=== PATIENT | female | born 2000 | race Caucasian/White ===

== ENCOUNTER 2020-03-03 20:11 | Observation (INO) | payer BC, SELFPAY ==
--- NOTE | ~2020-03-03 | CT_ITS ---
EXAMINATION: CT abdomen pelvis w con INDICATION: Right lower quadrant pain TECHNIQUE: Computed tomographic images of the abdomen and pelvis were obtained after the administrati on of 100 cc of Omnipaque 350 intravenous contrast. The dose-length product (DLP) was 254.45 mGy-cm. Automated exposure control and iterative reconstruction technique were employed. COMPARISON: 03/28/2013 FINDINGS: The lung bases are clear. The heart size is normal. The liver, spleen, pancreas, gallbladde r, and adrenal glands are normal. The kidneys are unremarkable. No pathologically enlarged abdominal or pelvic lymph nodes are identified. There is no free intraperitoneal gas or evidence of bowel obstr uction. There is an appendicolith at the base of the appendix. The dilated appendix measures up to 7 mm. There is no evidence of periappendiceal abscess or perforation. The visualized osseous structures are unremarkable. IMPRESSION: 1. Acute appendicitis. Reviewed, dictated and finalized at location B. IMPRESSION: 1. Acute appendicitis.
[2020-03-03 20:20] VITALS: BP 126/80; PULSE 103; RESP 17; TEMP 36.9; O2SAT 100
[2020-03-03 20:40] LABS: Basophils Percent Auto 0.2 % (0.2-1.2); Eosinophils Absolute Auto 0.1 K/mm3 (0-0.3); Eosinophils Percent Auto 1.7 % (0-4.4); Hematocrit 42.8 % (37.0-47.0); Hemoglobin 14.7 g/dL (12.0-15.0); Immature Granulocyte Absolute 0.02 K/mm3 (0.00-0.031); Immature Granulocyte Percent A 0.2 % (0-0.5); Lymphocytes Absolute Auto 1.84 K/mm3 (0.9-3.2); Lymphocytes Percent Auto 22.3 % (18.3-44.2); Mean Corpuscular HGB Conc 34.3 g/dl (32-36); Mean Corpuscular Hemoglobin 29.6 pg (26-34); Mean Corpuscular Volume 86.1 fl (80-100); Mean Platelet Volume 9.9 fl (7.4-10.4); Monocytes Absolute Auto 0.6 K/mm3 (0.1-0.6); Monocytes Percent Auto 7.6 % (2.6-8.5); Neutrophils Absolute Auto 5.6 K/mm3 (1.3-6.7); Platelet Count Result 266 k/mm3 (150-375); Red Blood Count 4.97 M/mm3 (4.2-5.4); Red Cell Distribution Width 12.7 % (11.5-14.5); White Blood Count 8.3 K/mm3 (4.5-10.0)
[2020-03-03 20:52] LABS: Alanine Aminotransferase 24 U/L (4-35); Albumin Level 4.4 g/dL (3.5-5.1); Alkaline Phosphatase 43 U/L (38-126); Aspartate Amino Transferase 24 U/L (14-36); Bilirubin,Total 0.5 mg/dL (0.2-1.3); Blood Urea Nitrogen 12 mg/dL (7-17); Calcium 9.3 mg/dL (8.4-10.2); Carbon Dioxide 25 mmol/L (22-30); Chloride 102 mmol/L (98-107); Estimated CRCL calculation 83 ml/min; Estimated Glomerular Filt Rate > 60; Glucose 104 mg/dL (65-105); Lipase 50 U/L (23-300); Sodium 135 mmol/L (137-145)
[2020-03-03 21:53] LABS: Add Urine Microscopic? NO; Appearance Urine Clear (Clear); Bilirubin Urine Negative (Negative); Blood Urine Negative (Negative); Color Urine Colorless (Yellow); Glucose Urine UA Negative (Negative); Ketones Urine Negative (Negative); Leukocyte Esterase Ur Negative LEU/UL (Negative); Nitrate Urine Negative (Negative); Protein Urine Negative (Negative); Specific Grav Ur 1.006 (1.001-1.035); Urobilinogen Urine Negative mg/dL (<2.0)
--- NOTE | 2020-03-03 22:32 | ED.ABDPAIN ---
HPI - Abdominal Pain General Chief Complaint: Abdominal Pain <Lowell Weston MD - Last Filed: 03/04/20 00:29> Stated Complaint: RLQ pain, nausea <Lowell Weston MD - Last Filed: 03/04/20 00:29> Time Seen by Provider: 03/03/20 22:32 <Lowell Weston MD - Last Filed: 03/04/20 00:29> History of Present Illness HPI narrative: Abdominal pain since this morning. Start near the umbilicus. Migrated to the RLQ. Moderate intensity. Worse with any movement. Associated with nausea. <Lowell Weston MD - Last Filed: 03/04/20 00:29> Related Data Home Medications: Home Medications Medication Instructions Recorded Confirmed norethindrone acetate 1 mg-ethinyl 1 tablet PO DAILY 08/31/19 estradiol 20 mcg tablet <Lowell Weston MD - Last Filed: 03/04/20 00:29> Allergies/Adverse Reactions: Allergies Allergy/AdvReac Type Severity Reaction Status Date / Time No Known Allergies Allergy Unknown Verified 03/03/20 23:10 <Lowell Weston MD - Last Filed: 03/04/20 00:29> Review of Systems Review of Systems: All systems reviewed & are unremarkable except as noted in HPI and below <Lowell Weston MD - Last Filed: 03/04/20 00:29> Constitutional: Constitutional: Denies fever(s) <Lowell Weston MD - Last Filed: 03/04/20 00:29> Gastrointestinal: Gastrointestinal: Denies diarrhea, Reports nausea and Denies vomiting <Lowell Weston MD - Last Filed: 03/04/20 00:29> Genitourinary: Genitourinary: Denies hematuria, Denies nocturia and Denies dysuria <Lowell Weston MD - Last Filed: 03/04/20 00:29> Neurologic: Denies dizziness and Denies numbness <Lowell Weston MD - Last Filed: 03/04/20 00:29> [facility] Social History Social History: Social History (Updated 08/31/19 @ 13:42 by Rolanda Caal) Smoking status: Never smoker Alcohol intake: current Substance use: never Substance use type: does not use Gender identity (if verbalized by the patient): Female <Lowell Weston MD - Last Filed: 03/04/20 00:29> Exam Const: General: healthy appearing, no acute distress and alert <Lowell Weston MD - Last Filed: 03/04/20 00:29> Orientation/consciousness: patient oriented x3 <Lowell Weston MD - Last Filed: 03/04/20 00:29> HENMT: Head: normal to inspection <Lowell Weston MD - Last Filed: 03/04/20 00:29> Neck: Neck: normal visual inspection and no lymphadenopathy <Lowell Weston MD - Last Filed: 03/04/20 00:29> Chest: Chest palpation & inspection: no tenderness <Lowell Weston MD - Last Filed: 03/04/20 00:29> Resp: Effort & Inspection: normal respiratory effort <Lowell Weston MD - Last Filed: 03/04/20 00:29> Auscultation: clear to auscultation bilaterally, no rales, no rhonchi and no wheezes <Lowell Weston MD - Last Filed: 03/04/20 00:29> Cardio: Jugular venous distension: no JVD <Lowell Weston MD - Last Filed: 03/04/20 00:29> Rate: regular rate <Lowell Weston MD - Last Filed: 03/04/20 00:29> Rhythm: regular rhythm <Lowell Weston MD - Last Filed: 03/04/20 00:29> Heart sounds: no murmurs <Lowell Weston MD - Last Filed: 03/04/20 00:29> GI: Inspection: non-distended <Lowell Weston MD - Last Filed: 03/04/20 00:29> GI Palp: Yes Soft to palpation, Yes Tenderness to palpation present (GI) (RLQ), No Guarding due to palpation present (GI) and No Rebound tenderness present <Lowell Weston MD - Last Filed: 03/04/20 00:29> Skin: General skin exam: normal color <Lowell Weston MD - Last Filed: 03/04/20 00:29> Neuro: General: patient oriented x3 and moves all extremities <Lowell Weston MD - Last Filed: 03/04/20 00:29> Speech: normal speech <Lowell Weston MD - Last Filed: 03/04/20 00:29> Extrem: General: no edema <Lowell Weston MD - Last Filed: 03/04/20 00:29> Psych: Appearance: well kempt <Lowell Weston MD - Last Filed: 0
[2020-03-03 23:12] VITALS: BP 121/80; PULSE 89; RESP 20; O2SAT 99
[2020-03-03 23:46] VITALS: BP 111/69; PULSE 79; RESP 16; O2SAT 100
[2020-03-04] VITALS (13 sets, daily range): BP systolic 100–140; BP diastolic 48–79; PULSE 67–96; RESP 14–24; TEMP 36.2–37; O2SAT 95–100; BMI 22.4
--- NOTE | 2020-03-04 00:24 | PC.NURSE ---
went to start carie on pt. pt mother states before we do anything, i want to speak to the doctor.. i want her to be transferred to [facility] because thats where all our doctors are. notified.
--- NOTE | 2020-03-04 01:11 | PC.NURSE ---
pt states she now wants to stay and be admitted here. md notified. states shes going to go talk w/ pt.
[2020-03-04] MEDS: MORPHINE SULFATE 2 MG/ML INJ IV PUSH (01:31)
[2020-03-04] MEDS: ONDANSETRON INJ 4 MG/2 ML VIAL IV PUSH ×2 (01:31→08:41)
--- NOTE | 2020-03-04 03:06 | ADMGEN ---
This patient, Monica Shafer, was admitted to [facility] Room 302-01. Patient/family oriented to hospital policies and general routines including ID bracelet, bed and alarms, visiting hours, pain management, procedures, bathroom and other care routines, personal items, smoking policy, room service/diet, and visiting hours. Valuables list has been completed. Information on how to activate the Rapid Response Team has been discussed. Patient/Family are encouraged to report perceived risks to care and to ask questions if they do not understand what they are told or what they should do.
[2020-03-04] MEDS: MORPHINE SULFATE 4 MG/ML INJ 2 MG IV PUSH (06:53)
--- NOTE | 2020-03-04 07:10 | WPDANESEPPF ---
Anes - Initial Pre Proc Eval Procedure: Operation Date: 03/04/20 07:00 Proposed Procedures p Laparoscopic Appendectomy - Maude Boyle MD Date/Time: 03/04/20 07:10 Surgeon: Maude Boyle MD Pre Op Diagnosis: Acute appendicitis Patient Data Age: 20 Gender: F Height: 1.63 m Weight: 59.4 kg Last Vital Signs Temp 36.6 C 03/04/20 06:00 Pulse 70 03/04/20 06:00 Resp 20 03/04/20 06:00 BP 140/54 L 03/04/20 06:00 Pulse Ox 98 03/04/20 06:00 Allergies Allergy/AdvReac Type Severity Reaction Status Date / Time No Known Allergies Allergy Unknown Verified 03/03/20 23:10 Home Medications Medication Instructions Recorded Confirmed Type norethindrone acetate 1 mg-ethinyl 1 tablet PO DAILY 08/31/19 03/04/20 History estradiol 20 mcg tablet Laboratory Tests 03/03/20 03/03/20 03/03/20 20:27 20:27 21:36 WBC 8.3 K/mm3 K/mm3 (4.5-10.0) RBC 4.97 M/mm3 M/mm3 (4.2-5.4) Hgb 14.7 g/dL g/dL (12.0-15.0) Hct 42.8 % % (37.0-47.0) MCV 86.1 fl fl (80-100) MCH 29.6 pg pg (26-34) MCHC 34.3 g/dl g/dl (32-36) RDW 12.7 % % (11.5-14.5) Plt Count 266 k/mm3 k/mm3 (150-375) MPV 9.9 fl fl (7.4-10.4) Immature Gran % (Auto) 0.2 % % (0-0.5) Neut % (Auto) 68.0 % % (45.5-73.1) Lymph % (Auto) 22.3 % % (18.3-44.2) [place] % (Auto) 7.6 % % (2.6-8.5) Eos % (Auto) 1.7 % % (0-4.4) Baso % (Auto) 0.2 % % (0.2-1.2) Lymph # (Auto) 1.84 K/mm3 K/mm3 (0.9-3.2) [place] # (Auto) 0.6 K/mm3 K/mm3 (0.1-0.6) Eos # (Auto) 0.1 K/mm3 K/mm3 (0-0.3) Baso # (Auto) 0.0 K/mm3 K/mm3 (0.0-0.1) Abs Immat Gran (auto) 0.02 K/mm3 K/mm3 (0.00-0.031) Absolute Neuts (auto) 5.6 K/mm3 K/mm3 (1.3-6.7) Absolute Nucleated RBC 0.0 K/mm3 K/mm3 (0.0-0.012) Nucleated RBC % 0.0 % % (0.0-0.2) Sodium 135 mmol/L L mmol/L (137-145) Potassium 4.0 mmol/L mmol/L (3.4-5.0) Chloride 102 mmol/L mmol/L (98-107) Carbon Dioxide 25 mmol/L mmol/L (22-30) Anion Gap 12.0 mmol/L mmol/L (7-16) BUN 12 mg/dL mg/dL (7-17) Creatinine 0.80 mg/dL mg/dL (0.7-1.0) Estim Creat Clear Calc 83 ml/min ml/min Estimated GFR > 60 (59 - ) Glucose 104 mg/dL mg/dL (65-105) Calcium 9.3 mg/dL mg/dL (8.4-10.2) Total Bilirubin 0.5 mg/dL mg/dL (0.2-1.3) AST 24 U/L U/L (14-36) ALT 24 U/L U/L (4-35) Alkaline Phosphatase 43 U/L U/L (38-126) Total Protein 8.0 g/dL g/dL (6.3-8.2) Albumin 4.4 g/dL g/dL (3.5-5.1) Lipase 50 U/L U/L (23-300) Urine Color Colorless (Yellow) Urine Appearance Clear (Clear) Urine pH 6.0 (5.0-9.0) Ur Specific [place] 1.006 (1.001-1.035) Urine Protein Negative mg/dL mg/dL (Negative) Urine Glucose (UA) Negative mg/dL mg/dL (Negative) Urine Ketones Negative mg/dL mg/dL (Negative) Ur Blood (Man) Negative (Negative) Urine Nitrate Negative (Negative) Urine Bilirubin Negative (Negative) Urine Urobilinogen Negative mg/dL mg/dL (<2.0) Leukocyte Esterase Rfl Negative BELL/UL BELL/UL (Negative) Patient hx anesthesia problems: none Family hx anesthesia problems: none PMFSH Past Medical History Medical History (Updated 03/04/20 @ 07:10 by Mark Elizabeth DO) Anxiety Social History Social History (Updated 08/31/19 @ 13:42 by Rolanda Caal) Smoking status: Never smoker Alcohol intake: current Drinks per week: 1 Substance use: never Substance use type: does not use Gender identity (if verbalized by the patient): Female Spiritual care c
[2020-03-04] MEDS: LACTATED RINGERS 1,000 ML 30 ML IV CONT (07:17)
--- NOTE | 2020-03-04 07:31 | PM.IMHP ---
H&P: HPI History of Present Illness Chief complaint: Acute appendicitis Narrative: Monica Shafer is a 20 year old female presenting to ED c/o 1 d h/o lower abd pain. Pt reports pain started more mild and periumbilical. Pt reports pain is now localized to RLQ and constant. Pt reports assoc decreased appetite and nausea. Pt denies previous episodes. Review of Systems Constitutional: Constitutional: Denies chills, Denies fatigue, Denies lethargy and Denies weakness Eyes: Eyes: Reports no additional eye complaints ENT: Reports Normal hearing present Cardiovascular: Cardiovascular: Denies chest pain Respiratory: Respiratory: Denies dyspnea Gastrointestinal: Gastrointestinal: Reports abdominal pain, Denies bloating, Denies constipation, Denies diarrhea, Reports nausea and Denies vomiting Genitourinary: Genitourinary: Denies nocturia, Denies dysuria and Denies urinary urgency Musculoskeletal: Musculoskeletal: Reports no additional musculoskeletal complaints Integumentary/Breasts: Skin/Breast: Reports system reviewed and no additional complaints, except as docu Neurologic: Reports system reviewed and no additional complaints, except as documented Psychiatric: Psychiatric: Reports no additional psychiatric complaints PMFSH Past Medical History Medical History Anxiety Social History Social History Smoking status: Never smoker Alcohol intake: current Drinks per week: 1 Substance use: never Substance use type: does not use Gender identity (if verbalized by the patient): Female Spiritual care concerns: No Meds Home Medications and Allergies Home Medications Medication Instructions Recorded Confirmed Type norethindrone acetate 1 mg-ethinyl 1 tablet PO DAILY 08/31/19 03/04/20 History estradiol 20 mcg tablet Allergies Allergy/AdvReac Type Severity Reaction Status Date / Time No Known Allergies Allergy Unknown Verified 03/03/20 23:10 Vital Signs Vital Signs - 24 hr 03/03/20 20:20 03/03/20 23:12 03/03/20 23:46 Temperature 36.9 C Pulse Rate 103 H 89 79 Respiratory Rate 17 20 16 Blood Pressure 126/80 121/80 111/69 Pulse Oximetry 100 99 100 03/04/20 00:43 03/04/20 01:19 03/04/20 02:51 Temperature Pulse Rate 89 79 96 Respiratory Rate 16 16 16 Blood Pressure 126/75 130/79 117/63 Pulse Oximetry 100 98 98 03/04/20 03:00 03/04/20 06:00 Temperature 37.0 C 36.6 C Pulse Rate 75 70 Respiratory Rate 16 20 Blood Pressure 117/56 L 140/54 L Pulse Oximetry 98 98 Exam Const: General: no acute distress HENMT: Mouth: Yes moist mucous membranes Eyes: Pupils: Equal, round and reactive pupils present EOM: EOMs intact bilaterally Neck: Neck: supple and no JVD Lymphatic: lymphadenopathy not noted Resp: Auscultation: clear to auscultation bilaterally Cardio: Rate: regular rate Rhythm: regular rhythm GI: GI Palp: Yes Soft to palpation Other: sl dist, focal TTP RLQ, vol guarding Skin: General skin exam: normal color Neuro: General: gait normal Speech: normal speech Motor exam (neuro): 5/5 motor strength present throughout Extrem: General: normal to inspection Psych: Mental Status: mental status grossly normal H&P: Results Labs Labs: Short CBC 03/03/20 Range/Units 20:27 WBC 8.3 (4.5-10.0) K/mm3 Hgb 14.7 (12.0-15.0) g/dL Hct 42.8 (37.0-47.0) % Plt Count 266 (150-375) k/mm3 BMP 03/03/20 20:27 Sodium 135 L Potassium 4.0 Chloride 102 Carbon Dioxide 25 BUN 12 Creatinine 0.80 Glucose 104 Calcium 9.3 Liver Function 03/03/20 Range/Units 20:27 Total Bilirubin 0.5 (0.2-1.3) mg/dL AST 24 (14-36) U/L ALT 24 (4-35) U/L Alkaline Phosphatase 43 (38-126) U/L Albumin 4.4 (3.5-5.1) g/dL Urine 03/03/20 Range/Units 21:36 Urine Color Colorless (Yellow) Urine Appearance Clear (Shonda
--- NOTE | 2020-03-04 07:40 | SUR.PREOP ---
patient ambulated to bathroom at 0645 in patient room before coming to surgery area, patient states called her mom to report going to OR
--- NOTE | 2020-03-04 07:56 | PC.NURSE ---
To OR per bed, IV SL. Report given to YANELY Sung.
[2020-03-04] MEDS: BUPIVACAINE/EPINEPHRINE 0.5% 10 ML VIAL 30 ML INFILTRATE (07:58)
--- NOTE | 2020-03-04 08:26 | P.OP_ITS ---
Procedure Note - Detailed Date of procedure: 03/04/20 Pre-op diagnosis: Acute appendicitis Post-op diagnosis: same Procedure performed: Laparoscopic appendectomy Description of procedure: The patient was brought into the operating room placed in the supine position. After adequate induction of general anesthesia, the patient was prepped and draped in normal sterile fashion. A time-out was then done to verify the patient's identity as well as the procedure being performed. I began by making a 5 mm incision in the infraumbilical region. A 5 mm Optiview trocar within used to gain access into the peritoneal cavity. Once into the peritoneal cavity, CO2 gas was insufflated. After adequate pneumoperitoneum was achieved, the laparoscope was placed into the 5 mm trocar. Under direct visualization, I went ahead and placed a further 5 mm suprapubic port as well as a 12 mm port in the left lower abdomen. At this point, I was able to visualize cecum. The cecum was retracted both cephalad and medial, and this allowed us to expose the appendix. The appendix was noted to be very dilated, injected, and inflamed. There was no obvious perforation of the appendix. I then grasped the appendix near the tip of the appendix and retracted both anterior and lateral. This allowed exposure of the base of the appendix with the cecum. I then created a window with the [place] dissector between the appendix and the mesoappendix at the base of the appendix. Once this was achieved, a vascular staple load on the Endo-KIERRA was placed through the 12 mm port site and subsequently transected the mesoappendix. This required 2 staple loads. I then reloaded the Endo-KIERRA with a blue staple load and transected the base of the appendix with the cecum. Once the appendiceal specimen was completely detached, a Endo pouch was placed through the 12 mm port site. The appendix was placed into the Endo pouch and removed through the 12 mm port site. The appendix will now be sent to pathology for further review. I then visualized the right lower quadrant, both staple lines were noted to be intact and hemostatic. No other pathology was noted in the right lower quadrant or pelvis. I then moved the laparoscope to the 5 mm suprapubic port. I then visualized our port of entry at the 5 mm infraumbilical site. No iatrogenic injury or other pathology was seen in the upper abdomen. I then desufflated the abdomen and all ports were remove d. The fascia of the 12 mm port site was closed with an 0 Vicryl figure of 8 suture. All port sites were then closed with 4 O Monocryl subcuticular suture. The patient tolerated the procedure well and was extubated in the operating room postoperatively. The patient will be transferred to the recovery room in stable condition. Anesthesia: GETA Surgeon: Maude Boyle MD Estimated blood loss (mL): 5 Drains: No Packing: No Pathology: yes Complications: No immediate complications Condition: stable Disposition: PACU Findings: Acute uncomplicated appendicitis
--- NOTE | 2020-03-04 10:00 | PC.NURSE ---
Returned from OR at 1000. Patient resting in room. NAD noted.
--- NOTE | 2020-03-26 12:09 | PM.DS ---
DS: Admitting Diagnosis Admitting Diagnosis Admitting Diagnosis: Acute appendicitis DS: Discharge Diagnosis Discharge Diagnosis (1) Acute appendicitis: Qualifiers: Acute appendicitis type: with localized peritonitis Appendicitis abscess presence: without abscess Appendicitis gangrene presence: without gangrene Appendicitis perforation presence: without perforation Qualified Code(s): K35.30 - Acute appendicitis with localized peritonitis, without perforation or gangrene Code(s): K35.80 - Unspecified acute appendicitis Status: Acute Assessment and Plan: s/p lap appy, please see op report for details, doing well, home c po analgesia, local wound care, f/u 2 wks DS: Summary Hospital Course Reason for hospitalization: acute appendicitis Hospital Course: 20 y/o F presenting to ED c/o severe RLQ abd pain x 1 d. Workup including imaging c/w acute appendicitis. Pt taken to OR and lap appy performed. Pt doing well postop and will be dc'd home c po analgesia. Pt to f/u in 2 wks. Status at Discharge Functional status at discharge: independent ambulation Overall status at discharge: patient is progressing back to baseline Time Spent with Patient Time attestation: Total time spent providing and/or coordinating discharge services: Time spent: Less than 30 minutes Exam Const: General: no acute distress Resp: Auscultation: clear to auscultation bilaterally Cardio: Rate: regular rate Rhythm: regular rhythm GI: Other: S, sl dist, incisions C/D/I DS: Data Data Completed and Pending Completed studies during hospitalization: Pending at discharge 03/04/20 07:58 Surgical [PTH] Routine Discharge Plan Discharge Attending physician on discharge: Maude Boyle Consulting providers: Bladimir Castillo Discharging Clinician: Maude Boyle Anticipated Discharge Date/Time: 03/04/20 12:00 Patient Disposition: Home, Self-Care Activity: may shower and as tolerated Diet: as tolerated Wound Care Instructions: incision open to air Discharge Instructions: DISCHARGE INSTRUCTION SHEET FOR HERNIA, GALLBLADDER AND APPENDIX SURGERIES DR. BOYLE PATIENT TO TAKE HOME 1. May shower in 24 hours, no soaking in bath x 2weeks. 2. Call office for: Wound increasingly painful or bleeding Vomiting Fever of greater than 101 degrees 3. If no bowel movement for three days, take 1 oz. (30 ml) Milk of Magnesia or MiraLax 17g 1 to 2 times daily. 4. No heavy lifting > 10-15 pounds x weeks for hernia repairs and 2 weeks for laparoscopic cholecystectomy or appendectomy. 5. No driving for 3 days or while taking narcotic pain medications. 6. Ice to surgical site for 48 hours (30 min on, then 30 min off). 7. Up walking 10-30 minutes three times per day. 8. Resume previous home medications. 9. Follow-up 10-14 days in office for wound check or as previously scheduled. ([id number]) 10. Oral pain medications prescription to be sent to pharmacy. Take Tylenol 500mg every 6 hours and Ibuprofen 600mg every 6 hours for the first 2 days, then as needed. 11. NUTRITION: Start out by drinking fluids and increase your diet as tolerated. If you experience nausea, try dry toast, crackers, and 7-UP. If nausea or vomiting persists, contact your surgeon?s office. 12. Gallbladders-Low Fat Diet for 2 weeks (send care note of low fat diet) 13. Inguinal Hernias-wear scrotal support for 48 hours 14. Abdominal Hernias-if sent home with abdominal binder, wear for the first 2 weeks (may remove to shower or at night to sleep).
== END 2020-03-04 14:09 | disposition home or self-care (01) ==
LOC: ANHED 03-04 01:36 → ANH3MEDSUR 03-04 02:32
PROVIDERS: Admitting Provider Surgery; Emergency Provider Emergency Medicine; PCP Family Medicine; Visit Provider Surgery
PROC: 0DTJ4ZZ Resection of Appendix, Percutaneous Endoscopic Approach (ICD-10-PCS; CPT 44970; principal; 2020-03-04 07:00)
DX: K35.30 Acute appendicitis with localized peritonitis, without perforation or gangrene (principal)
CPT/HCPCS: 44970; 36415; 74177; 80053; 81003; 81025; 83690; 85025; 88304; 96361; 96365; 96375; 96376; 99285; A9270; G0378; J0330; J1100; J2250; J2270; J2405; J2543; J2704; J2710; J3010; J7030; J7120; Q9967

== ENCOUNTER 2024-01-12 14:09 | Outpatient (CLI) | payer BC, SELFPAY ==
--- NOTE | ~2024-01-12 | US_ITS ---
Right thoracic paraspinal area ULTRASOUND (Doppler ultrasound interrogation techniques used as needed for this exam.) Ordering provider: Deborah Schilling PA-C History: . Mass on R thoracic paraspinal area . Comparison: None. FINDINGS/impression: Hypoechoic subcutaneous lesion measuring 1.1 x 0.3 x 1.3 cm is noted in the righ t thoracic paraspinal area. Blood flow is seen in the area. Lymph node and less likely a cyst is poss ible. Neurogenic lesion cannot be excluded. Follow-up advised. Reviewed, dictated and finalized at location A.
== END 2024-01-12 14:10 | disposition home or self-care (01) ==
PROVIDERS: PCP Family Medicine; Visit Provider Student in an Organized Health Care Education/Training Program
DX: R22.2 Localized swelling, mass and lump, trunk (principal)
CPT/HCPCS: 76705

== ENCOUNTER 2024-06-21 10:34 | Outpatient (CLI) | payer BC, SELFPAY ==
--- NOTE | ~2024-06-21 | MR_ITS ---
EXAMINATION: MR thoracic spine wo/w con DATE: 06/21/2024 11:36 INDICATION: Other specified disorders of bone. Spine lump. TECHNIQUE: Magnetic resonance imaging (MRI) of the thoracic spine was performed without and with 10 m L MultiHance intravenous contrast. COMPARISON: Ultrasound 01/12/2024 FINDINGS: There is kyphosis of thoracic spine. There is mild chronic anterior wedging of T8-T12 verte bral bodies associated with Schmorl's nodes. There is mildly decreased disc height at T8-T9, T10-T11, and T11-T12. The discs do not extend beyond the endplate margins. The facet joints are unremarkable. No neural foraminal stenosis or central canal stenosis. The spinal cord signal intensity is normal. The conus medullaris is at L1. In the right paraspinal region at L2-L3, there is an enhancing 1.9 x 0 .3 cm mass at the junction of the musculature and subcutaneous fat. A skin marker overlies this area. IMPRESSION: 1. 1.9 x 0.3 cm mass at the junction of the musculature and subcutaneous fat in the right paraspinal region at L2-L3, likely inflammation or injury such as a Bah-Timur lesion. 2. Scheuermann disease. Reviewed, dictated and finalized at location A. [employer]
== END 2024-06-21 10:35 | disposition home or self-care (01) ==
LOC: ANHIMG 10:35
PROVIDERS: PCP Family Medicine; Visit Provider Physician Assistant
DX: M89.8X8 Other specified disorders of bone, other site (principal)
CPT/HCPCS: 72157; A9577